=== PATIENT | female | born 1990 | race Caucasian/White ===

== ENCOUNTER → 2020-08-14 10:30 | Outpatient (BNVA) | payer OTHER, SELFPAY | PROVIDERS: Family Provider General Practice; Visit Provider Nurse Practitioner Family | DX: Z20.828 Contact with and (suspected) exposure to other viral communicable diseases (principal) | CPT/HCPCS: 87635 ==

== ENCOUNTER 2022-01-04 15:25 | Emergency (ER) | payer OTHER, SELFPAY ==
[2022-01-04 15:41] VITALS: BP 130/85; PULSE 105; RESP 18; TEMP 37.3; O2SAT 97; BMI 21.9
--- NOTE | 2022-01-04 15:52 | ED_ITS ---
HPI - General Adult General: Chief complaint: Needlestick/Injury/Exposure Stated complaint: Needle stick at work Time Seen by Provider: 01/04/22 15:51 History of Present Illness: Patient is a 31-year-old female comes to the ED with accidental needlestick injury. 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 The trash bag hit patient's left leg and something poked her leg. Trash bag had multiple insulin needles in it. Patient says she does have a history of past hep C infection but no current hepatitis C infection. Associated symptoms: Deny chest pain, dyspnea, headache(s), nausea, rash, palpitations or vomiting Review of Systems Const: Denies: fever(s), chills or fatigue Eyes: Denies: change in vision or eye discomfort ENMT: Denies: throat pain, odynophagia, nasal discharge or nasal congestion Card: Denies: chest pain, palpitations, edema, swelling of feet/ankles, dyspnea on exertion or orthopnea Resp: Denies: dyspnea, productive cough or non-productive cough GI: Denies: abdominal pain, nausea, vomiting, diarrhea, constipation or hematochezia : Denies: flank pain, dysuria or hematuria Musc: Denies: neck pain, back pain or extremity swelling Skin/Breast: Reports: new lesions (Puncture wound to left leg.); Denies: rash Neuro: Denies: headache(s), numbness in extremities or weakness in extremities [facility] ED PFSH: Medical History (Updated 01/05/22 @ 07:35 by RODRIGO Vizcarra) Hepatitis C Surgical History H/O tubal ligation Family History Grandmother Hypertension Diabetes Mother Hypertension Sister Diabetes Denies family history of Dementia Social History Smoking and tobacco status: current every day smoker cigarettes Packs smoked per day: 0.5 Years cigarettes smoked: 1 Alcohol intake: never Current gender identity: Female Special lyubov needs: No Female Reproductive History: Date of last menstrual period: 12/24/21 Physical Exam Const: COMMON NORMALS: no acute distress, patient oriented x3, healthy ap pearing and alert GENERAL APPEARANCE: cooperative and comfortable HENMT: COMMON NORMALS: normocephalic HEAD & SCALP: normocephalic MOUTH: Normal oral and palatal mucosa present THROAT: posterior oropharynx normal and uvula midline Neck/C-Spine: COMMON NORMALS: supple GENERAL: Yes normal visual inspection Resp: COMMON NORMALS: normal respiratory effort, No retractions, No use of accessory muscles and clear to auscultation bilaterally AUSCULTATION: clear to auscultation bilaterally Cardio: COMMON NORMALS: regular rate, regular rhythm, S1 normal heart sound present, S2 normal heart sound present, No gallops present (Cardio), No clicks present (Cardio), No murmurs present (Cardio) and Peripheral pulses 2+ throughout RATE: regular rate RHYTHM: regular rhythm HEART SOUNDS: S1 normal heart sound present and S2 normal heart sound present PERIPHERAL PULSES: Peripheral pulses 2+ throughout GI: COMMON NORMALS: Normal to inspection, nondistended, normoactive bowel sounds present, Soft to palpation, non-tender and no masses PALPATION: Yes Soft to palpation : COMMON NORMALS: Yes no CVA tenderness BLADDER/KIDNEY EXAM: Yes no CVA tenderness Back/Pelvis: COMMON NORMALS: no CVA tenderness Extremity: COMMON NORMALS: normal to inspection Neuro: COMMON NORMALS: patient oriented x3 and moves all extremities SENSORIUM/ORIENTATION: Yes alert Skin: NARRATIVE SKIN EXAM: Left leg?lateral lower leg-small superficial puncture wound. No erythema, warmth or purulent drainage seen. GENERAL SKIN EXAM: dry skin Course Vital Signs: Vital signs: Vital Signs Temperature 99.2 F 01/04/22 15:41 Pulse Rate 105 H 01/04/22 15:41 Respiratory Rate 18 01/04/22 15:41 Blood Pressure 130/85 01/04/22 15:41 Pulse Oximetry 97 01/04/22 15:41 MDM - General Adult Medical Decision Making Patient is 31-year-old female comes to the ED for having an accidental needlestick injury at her work. CBC, CMP, HIV and hepatitis labs performed and pending. Patient did not want to wait for labs so she was discharged home after labs. I told her to call [facility] in a couple hours to get results. Patient was given updated tetanus while here in the ED and discharged home with a prophylactic antibiotic prescription due to dirty needlestick. She was told to follow-up with her PCP and will need to have repeat CBC, CMP, HIV and hepatitis panel labs done in the next 2 months. Patient understood and agree with plan. I gave patient a call the next day- morning ([phone]) of January 05 to see if she checked on her hepatitis panel labs. She had a positive hep B antibodies likely consistent with immunity anterior hip otitis B surface antigen was nonreactive. Positive hepatitis C antibody. I told her about the lab findings and discussed with her that further labs are needed to check if she has any current/active infection. She does not currently have a primary care physician, so I told her I would place an order with case management for her to be referred to Dr. Mccarthy for further evaluation of abnormal hepatitis panel lab findings. Patient understood and agreed with plan. Lab Data I reviewed the patient's lab results. : 01/04/22 17:30 01/04/22 17:30 Laboratory Results WBC 9.9 10^3/uL (4.0-10.0) 01/04/22 17: RBC 4.16 10^6/uL (4.1-5.3) 01/04/22 17:30 Hgb 12.8 g/dL (11.5-15.3) 01/04/22 17:30 Hct 39.3 % (37.0-47.0) 01/04/22 17: MCV 94.5 fl (81-99) 01/04/22 17:30 MCH 30.8 pg (28.0-34.0) 01/04/22 17: MCHC 32.6 g/dL (30.0-36.0) 01/04/22 17: RDW 13.2 % (12.1-15.1) 01/04/22 17:30 Plt Count 322 10^3/cmm (130-400) 01/04/22 17: MPV 10.1 fL (7.4-10.4) 01/04/22 17: Neut % (Auto) 55.8 % 01/04/22 17:30 Lymph % (Auto) 37.1 % 01/04/22 17: [place] % (Auto) 4.8 % 01/04/22 17: Eos % (Auto) 1.6 % 01/04/22 17: Baso % (Auto) 0.4 % 01/04/22 17:30 Neut # (Auto) 5.50 10^3/uL (1.8-7.7) 01/04/22 17: Lymph # (Auto) 3.7 10^3/uL (0.8-4.8) 01/04/22 17:30 [place] # (Auto) 0.5 10^3/uL (0.2-0.9) 01/04/22 17: Eos # (Auto) 0.2 10^3/uL (0.0-0.8) 01/04/22 17: Baso # (Auto) 0.0 10^3/uL (0.0-0.1) 01/04/22: Nucleated RBC % (auto) 0 % 01/04/22: Nucleated RBCs # 0.0 /100WBC 01/04/22:30 Sodium 138 mmol/L (136-145) 01/04/22: Potassium 4.4 mmol/L (3.5-5.1) 01/04/22: Chloride 105 mmol/L (98-107) 01/04/22: Carbon Dioxide 23 mmol/L (22-29) 01/04/22 17:30 Anion Gap 14.4 (5-19) 01/04/22:30 BUN 10 mg/dL (6-20) 01/04/22 17: Creatinine 0.5 mg/dL (0.5-0.9) 01/04/22 17:30 GFR Calculation 143.9 mL/min (90-130) H 01/04/22 17: Glucose 93 mg/dL (65-115) 01/04/22 17: Calculated Osmolality 285 mOsm/kg (285-295) 01/04/22 17:30 Calcium 9.0 mg/dL (8.5-10.5) 01/04/22:30 Total Bilirubin 0.2 mg/dL (0.15-1.2) 01/04/22 17:30 AST 93 U/L (0-32) H 01/04/22 17:30 ALT 195 U/L (0-33) H 01/04/22 17:30 Alkaline Phosphatase 56 IU/L (35-105) 01/04/22 17:30 Total Protein 7.0 g/dL (6.6-8.7) 01/04/22 17:30 Albumin 4.2 g/dL (3.5-5.2) 01/04/22 17:30 Globulin 2.8 g/dL (1.3-4.6) 01/04/22 17:30 Hepatitis A IgM Ab TNP 01/04/22 17:30 Hep Bs Antigen Non-reactive (Nonreactive) 01/04/22 17:30 Hep Bs Antibody > 1000.0 (11.5-1000) H 01/04/22 17:30 Hep B Core Total Ab Non-reactive (Nonreactive) 01/04/22 17:30 Hepatitis C Antibody Reactive (Nonreactive) H 01/04/22 17:30 HIV 1&2 Ab & HIV 1 Ag Non-reactive (Non-Reactiv) 01/04/22 17:30 HIV 1&2 Antibody Non-reactive (Non-Reactiv) 01/04/22 17:30 Discharge Plan Discharge Patient Disposition: Home Clinical Impression: Needlestick injury accident with exposure to body fluid, Hepatitis C antibody test positive Condition: Stable Prescriptions: New cephalexin 500 mg capsule 500 mg PO Q6H 4 Days Qty: 16 0RF No Action amoxicillin-pot clavulanate [Augmentin] 875-125 mg tablet 1 tab PO BID 7 Days Qty: 14 0RF Discharge Orders: Discharge ED (Routine); Ordered 01/04/22 Ordered By: Tony Morrow Discharge Diet: Regular Discharge Activity: Increase activity as tolerated Patient Instructions: Blood/Body Fluid Exposure - Occupational, Needle Stick Injuries (ED) Activity Restrictions/Additional Instructions: Follow-up with medical provider as directed In the next 2 months to have CBC, CMP, HIV and hepatitis panel labs rechecked. Your labs are pending and you can call [facility] in the next couple hours to get results. Take medication as prescribed. Return to the ER or your medical provider if condition worsens. Please read and understand discharge instructions. Thank you for choosing [facility] for your healthcare needs today. Please realize this is an emergency room and that we are providing you with a medical screening exam and this may not be complete and all inclusive of all the testing and or work up that you may need to determine your ailment or severity of your illness. It is very important that you follow up as instructed or that you return to the Emergency Department should you have concerns or if your condition changes or worsens in any way. Coding Level of Care Code ED Chief Deputy Court Clerk for Brunilda Fwjacki Exam Comprehensive
[2022-01-04] MEDS: tetanus-dipt-pertussis 0.5 mL SDV IM (16:23)
[2022-01-04 17:38] LABS: Basophils % 0.4 %; Eosinophils # 0.2 10^3/uL (0.0-0.8); Eosinophils % 1.6 %; Hematocrit 39.3 % (37.0-47.0); Hemoglobin 12.8 g/dL (11.5-15.3); Lymphocytes # 3.7 10^3/uL (0.8-4.8); Lymphocytes % 37.1 %; Mean Corpuscular HGB Conc 32.6 g/dL (30.0-36.0); Mean Corpuscular Hemoglobin 30.8 pg (28.0-34.0); Mean Corpuscular Volume 94.5 fl (81-99); Mean Platelet Volume 10.1 fL (7.4-10.4); Monocytes # 0.5 10^3/uL (0.2-0.9); Monocytes % 4.8 %; Neutrophils % 55.8 %; Nucleated Red Blood Cells % 0 %; Platelet Count 322 10^3/cmm (130-400); Red Blood Count 4.16 10^6/uL (4.1-5.3); Red Cell Distribution Width 13.2 % (12.1-15.1); White Blood Count 9.9 10^3/uL (4.0-10.0)
[2022-01-04 17:53] LABS: Alanine Aminotransferase 195 U/L (0-33); Albumin Level 4.2 g/dL (3.5-5.2); Alkaline Phosphatase 56 IU/L (35-105); Anion Gap 14.4 (5-19); Aspartate Amino Transferase 93 U/L (0-32); Blood Urea Nitrogen 10 mg/dL (6-20); Carbon Dioxide 23 mmol/L (22-29); Chloride 105 mmol/L (98-107); Globulin 2.8 g/dL (1.3-4.6); Glomerular Filtration Rate 143.9 mL/min (90-130); Glucose 93 mg/dL (65-115); Osmolality Calculated 285 mOsm/kg (285-295); Potassium 4.4 mmol/L (3.5-5.1); Sodium 138 mmol/L (136-145); Total Bilirubin 0.2 mg/dL (0.15-1.2)
[2022-01-04 21:04] LABS: HIV 1 & 2 Antibody Non-Reactive (Non-Reactiv); HIV 1 & 2 Antigen Non-Reactive (Non-Reactiv)
[2022-01-04 22:24] LABS: Hepatitis B Core AB, Total Non-Reactive (Nonreactive); Hepatitis B Surface Antigen Non-Reactive (Nonreactive); Hepatitis C Virus Antibody Reactive (Nonreactive)
[2022-01-04 22:29] LABS: Hepatitis B Surface AB > 1000.0 (11.5-1000)
--- NOTE | 2022-01-05 12:32 | DCPLANNER ---
Addendum entered by Isela Segovia 02/02/22 21:35: Patient had a follow up appointment scheduled with Dr. Mccarthy at Internal Medicine - patient did not attend appointment. Addendum entered by Isela Segovia 01/06/22 07:53: Patient has a follow up appointment scheduled for Wednesday, January 26, 2022 at 1:30 with at Internal Medicine. Clinic will call patient with appointment information. Original Note: assistant portfolio manager had message to schedule a follow up appointment for patient with Dr. Mccarthy at Internal Medicine. assistant portfolio manager sent patients information to internal medicine for review. Patients information will be printed and reviewed. Clinic will call patient wit appointment information.
[2022-01-06 23:48] LABS: HEP C RNA Viral Load Quant 176000 IU/mL (NOT DETECTED); HEP C RNA Viral Load Quant 5.25 Log IU/mL (NOT DETECTED)
== END 2022-01-04 17:36 | disposition home or self-care (01) ==
PROVIDERS: Emergency Provider Physician Assistant
DX: S81.832A Puncture wound without foreign body, left lower leg, initial encounter (principal); W46.1XXA Contact with contaminated hypodermic needle, initial encounter
CPT/HCPCS: 36415; 80053; 85025; 86705; 86706; 86709; 86803; 87340; 87522; 87806; 90471; 90715; 99283

== ENCOUNTER 2022-02-17 10:38 | Outpatient (CLI) | payer OTHER, SELFPAY ==
[2022-02-17 12:03] LABS: Basophils % 0.2 %; Eosinophils # 0.1 10^3/uL (0.0-0.8); Eosinophils % 1.3 %; Hematocrit 42.8 % (37.0-47.0); Hemoglobin 13.9 g/dL (11.5-15.3); Lymphocytes # 3.3 10^3/uL (0.8-4.8); Lymphocytes % 32.3 %; Mean Corpuscular HGB Conc 32.5 g/dL (30.0-36.0); Mean Corpuscular Hemoglobin 29.8 pg (28.0-34.0); Mean Corpuscular Volume 91.8 fl (81-99); Mean Platelet Volume 10.5 fL (7.4-10.4); Monocytes # 0.6 10^3/uL (0.2-0.9); Monocytes % 6.3 %; Neutrophils # 6.04 10^3/uL (1.8-7.7); Neutrophils % 59.6 %; Nucleated Red Blood Cells % 0 %; Platelet Count 326 10^3/cmm (130-400); Red Blood Count 4.66 10^6/uL (4.1-5.3); Red Cell Distribution Width 14.5 % (12.1-15.1); White Blood Count 10.1 10^3/uL (4.0-10.0)
[2022-02-17 12:06] LABS: Erythrocyte Sedimentation Rate 14 mm/hr (0-15)
[2022-02-17 12:25] LABS: Alanine Aminotransferase 246 U/L (0-33); Albumin Level 4.4 g/dL (3.5-5.2); Alkaline Phosphatase 62 IU/L (35-105); Anion Gap 13.7 (5-19); Aspartate Amino Transferase 70 U/L (0-32); Blood Urea Nitrogen 10 mg/dL (6-20); Calcium 8.6 mg/dL (8.5-10.5); Carbon Dioxide 22 mmol/L (22-29); Chloride 101 mmol/L (98-107); Globulin 3.1 g/dL (1.3-4.6); Glomerular Filtration Rate 143.9 mL/min (90-130); Glucose 89 mg/dL (65-115); Osmolality Calculated 275 mOsm/kg (285-295); Potassium 3.7 mmol/L (3.5-5.1); Sodium 133 mmol/L (136-145); Total Bilirubin 0.4 mg/dL (0.15-1.2); Total Protein 7.5 g/dL (6.6-8.7)
== END 2022-02-17 10:39 | disposition home or self-care (01) ==
PROVIDERS: Visit Provider Nurse Practitioner Family
DX: L50.9 Urticaria, unspecified (principal)
CPT/HCPCS: 36415; 80053; 85025; 85651; 86003

== ENCOUNTER → 2023-01-19 10:38 | Outpatient (BNVA) | payer MEDICAID, SELFPAY | PROVIDERS: Visit Provider Nurse Practitioner Family | DX: R09.81 Nasal congestion (principal); Z20.822 Contact with and (suspected) exposure to COVID-19 | CPT/HCPCS: 87426 ==

== ENCOUNTER 2023-01-21 20:06 | Emergency (ER) | payer BC, MEDICAID, SELFPAY ==
[2023-01-21 20:09] VITALS: BP 136/65; PULSE 107; RESP 17; TEMP 36.7; O2SAT 100
--- NOTE | 2023-01-21 21:18 | CTR_ITS ---
PROCEDURE INFORMATION: Exam: CT Neck With Contrast Exam date and time: 01/21/2023 9:58 PM Age: 32 years old Clinical indication: Neck pain; Prior surgery; Surgery type: Tonsils/adenoids; Additional info: L submandibular mass and pain TECHNIQUE: Imaging protocol: Computed tomography of the neck with contrast. Sagittal and coronal reformatted images were created and reviewed. Radiation optimization: All CT scans at this facility use at least one of these dose optimization techniques: automated exposure control; mA and/or kV adjustment per patient size (includes targeted exams where dose is matched to clinical indication); or iterative reconstruction. Contrast material: OMNI 350; Contrast volume: 80 ml; Contrast route: INTRAVENOUS (IV); REPORTING DATA: Count of CT and Cardiac NM exams in prior 12 months: This patient has received 0 known CTs and 0 known cardiac nuclear medicine studies in the 12 months prior to the current study. COMPARISON: No relevant prior studies available. RADIATION DOSE METRICS: Total DLP (mGy-cm): 188.37 FINDINGS: Orbital cavities: Globes and lenses, extraocular muscles, and optic nerves are intact bilaterally. No acute intraorbital abnormality. Mastoid air cells: Mastoid air cells are clear bilaterally. Paranasal sinuses: Small mucous retention cyst in a left ethmoid sinus. Other paranasal sinuses are clear. Pharynx: Unremarkable. No significant tonsillar enlargement. Larynx: The larynx is unremarkable. The epiglottis is unremarkable. Prevertebral and retropharyngeal spaces: Unremarkable. Salivary glands: Normal. Glands are normal in size. Thyroid: The thyroid gland is unremarkable. Lymph nodes: No lymphadenopathy. Trachea: Trachea is midline and patent. Lungs: Visualized lungs are clear. Bones/joints: No acute fracture. No dislocation. Vasculature: The cervical vessels are unremarkable. Soft tissues: No soft tissue swelling. No radiopaque foreign body. No loculated fluid collections to suggest an abscess. CT/CT neck w con* [id number] IMPRESSION: 1. No acute abnormality of the cervical soft tissues. 2. Incidental/nonacute findings are listed in the report.
[2023-01-21 21:51] LABS: Basophils % 0.4 %; Eosinophils # 0.2 10^3/uL (0.0-0.8); Eosinophils % 1.8 %; Hematocrit 36.5 % (37.0-47.0); Hemoglobin 11.8 g/dL (11.5-15.3); Lymphocytes # 3.7 10^3/uL (0.8-4.8); Lymphocytes % 37.9 %; Mean Corpuscular HGB Conc 32.3 g/dL (30.0-36.0); Mean Corpuscular Hemoglobin 30.4 pg (28.0-34.0); Mean Corpuscular Volume 94.1 fl (81-99); Monocytes # 0.9 10^3/uL (0.2-0.9); Monocytes % 8.9 %; Neutrophils # 4.89 10^3/uL (1.8-7.7); Neutrophils % 50.7 %; Nucleated Red Blood Cells % 0 %; Platelet Count 326 10^3/cmm (130-400); Red Blood Count 3.88 10^6/uL (4.1-5.3); Red Cell Distribution Width 14.3 % (12.1-15.1); White Blood Count 9.6 10^3/uL (4.0-10.0)
[2023-01-21] MEDS: iohexol 350 mg/mL 500 mL Btl (per mL) IV (21:52)
--- NOTE | 2023-01-21 22:00 | ED_ITS ---
HPI - Dental/Oral General: Chief complaint: Dental/Oral Stated complaint: swelling cyst under tongue Time Seen by Provider: 01/21/23 20:56 Source: patient and family History of Present Illness: Healthy 32-year-old female with a 3-week history of submandibular swelling and pain. She notes that there is a mass under her tongue, and swelling under her jaw on the left side that is very painful. She has had 3 weeks of antibiotic therapy including Augmentin, clindamycin, and doxycycline without any improvement. No rashes. No airway compromise. It is painful to talk and move her tongue. It is also painful to swallow. Onset (ago): week(s) Duration: worsening Severity: moderate Relieving factors: nothing Exacerbating factors: chewing, drinking fluids, swallowing and other Associated symptoms: Reports fever(s), odynophagia and sore throat; Denies ear or mastoid pain, gum swelling or tongue swelling Review of Systems Const: Reports: fever(s) Eyes: Denies: change in vision ENMT: Reports: throat pain, odynophagia and mouth pain; Denies: uvular edema, enlarged tonsils, swelling of lips/tongue, ear or mastoid pain, nasal discharge or nasal congestion Card: Denies: chest pain or palpitations Resp: Denies: dyspnea, productive cough or non-productive cough GI: Denies: abdominal pain or vomiting Skin/Breast: Denies: rash All/Imm: Denies: tongue swelling PFSH ED PFSH: Medical History Hepatitis C Psychiatric care Surgical History H/O tubal ligation Family History Grandmother Hypertension Diabetes Mother Hypertension Sister Diabetes Denies family history of Dementia Social History Smoking and tobacco status: current every day smoker cigarettes Packs smoked per day: 0.5 Years cigarettes smoked: 1 Alcohol intake: never Substance/Drug Use: never Current gender identity: Female Special lyubov needs: No Physical Exam Const: COMMON NORMALS: no acute distress GENERAL APPEARANCE: cooperative; not ill appearing and not frail appearing HENMT: COMMON NORMALS: normocephalic, atraumatic and Normal external nose present HEAD & SCALP: normocephalic and atraumatic FACE & SINUS: normal facial exam and face symmetric NOSE: Normal external nose present MOUTH: lip normal and Abnormal salivary glands and ducts (Left submandibular swelling and tenderness.) THROAT: no uvular edema Eye: COMMON NORMALS: Equal, round and reactive pupils present and EOMs intact bilaterally PUPIL: Yes Equal, round and reactive pupils present Neck/C-Spine: GENERAL: Yes trachea midline Chest: CHEST: Yes Symmetrical chest wall rise Resp: COMMON NORMALS: normal respiratory effort, No retractions, No use of accessory muscles and clear to auscultation bilaterally AUSCULTATION: clear to auscultation bilaterally Cardio: COMMON NORMALS: regular rate and regular rhythm RATE: regular rate RHYTHM: regular rhythm GI: COMMON NORMALS: Normal to inspection, nondistended, normoactive bowel sounds present Extremity: COMMON NORMALS: no pedal edema Neuro: CRICKET COMA SCALE: document GCS findings Weikert coma scale eye opening: Spontaneous Weikert coma scale verbal response: Orientated Weikert coma scale motor response: Obey commands Cricket coma scale total score: 15 SENSORY EXAM: Yes extremities (intact) Psych: COMMON NORMALS: speech normal SPEECH: Yes normal speech Skin: COMMON NORMALS: no rashes or lesions noted GENERAL SKIN EXAM: no rashes or lesions noted Course Vital Signs: Vital signs: Vital Signs Temperature 98.1 F 01/21/23 20:09 Pulse Rate 107 H 01/21/23 20:09 Respiratory Rate 17 01/21/23 20:09 Blood Pressure 136/65 01/21/23 20:09 Pulse Oximetry 100 01/21/23 20:09 Oxygen Delivery Me thod Room Air 01/21/23 20:09 MDM - Dental/Oral Medical Decision Making Patient with enlarged swollen tender submandibular gland on the left on exam. No leukocytosis or fever. She has had 3 different antibiotics. Other laboratory is not significant. She has a CT showing some mild swelling of the gland, although it is read as negative. There is no abscess formation or mass. She will be treated with steroids and asked to follow-up with ENT surgery. She knows to return for worsening symptoms. She is encouraged to make use of lemon drops, etc. as a sialagogue hopefully to improve symptoms as well. Lab Data 01/21/23 21:42 01/21/23 21:[address] 01/21/23 21:18 IMPRESSION: 1. No acute abnormality of the cervical soft tissues. 2. Incidental/nonacute findings are listed in the report. Laboratory Results WBC 9.6 10^3/uL (4.0-10.0) 01/21/23 21:42 RBC 3.88 10^6/uL (4.1-5.3) L 01/21/23 21:42 Hgb 11.8 g/dL (11.5-15.3) 01/21/23 21:42 Hct 36.5 % (37.0-47.0) L 01/21/23 21:42 MCV 94.1 fl (81-99) 01/21/23 21:42 MCH 30.4 pg (28.0-34.0) 01/21/23 21:42 MCHC 32.3 g/dL (30.0-36.0) 01/21/23 21:42 RDW 14.3 % (12.1-15.1) 01/21/23 21:42 Plt Count 326 10^3/cmm (130-400) 01/21/23 21:42 MPV 10.0 fL (7.4-10.4) 01/21/23 21:42 Neut % (Auto) 50.7 % 01/21/23 21:42 Lymph % (Auto) 37.9 % 01/21/23 21:42 [place] % (Auto) 8.9 % 01/21/23 21:42 Eos % (Auto) 1.8 % 01/21/23 21:42 Baso % (Auto) 0.4 % 01/21/23 21:42 Neut # (Auto) 4.89 10^3/uL (1.8-7.7) 01/21/23 21:42 Lymph # (Auto) 3.7 10^3/uL (0.8-4.8) 01/21/23 21:42 [place] # (Auto) 0.9 10^3/uL (0.2-0.9) 01/21/23 21:42 Eos # (Auto) 0.2 10^3/uL (0.0-0.8) 01/21/23 21:42 Baso # (Auto) 0.0 10^3/uL (0.0-0.1) 01/21/23 21:42 Nucleated RBC % (auto) 0 % 01/21/23 21:42 Nucleated RBCs # 0.0 /100WBC 01/21/23 21:42 ESR 5 mm/hr (0-15) 01/21/23 21:42 Sodium 127 mmol/L (136-145) L 01/21/23 21:42 Potassium 3.5 mmol/L (3.5-5.1) 01/21/23 21:42 Chloride 98 mmol/L (98-107) 01/21/23 21:42 Carbon Dioxide 24 mmol/L (22-29) 01/21/23 21:42 Anion Gap 8.5 (5-19) 01/21/23 21:42 BUN 15 mg/dL (6-20) 01/21/23 21:42 Creatinine 0.6 mg/dL (0.5-0.9) 01/21/23 21:42 GFR Calculation 115.9 mL/min (90-130) 01/21/23 21:42 Glucose 92 mg/dL (65-115) 01/21/23 21:42 Calculated Osmolality 264 mOsm/kg (285-295) L 01/21/23 21:42 Calcium 8.6 mg/dL (8.5-10.5) 01/21/23 21:42 Total Bilirubin 0.2 mg/dL (0.15-1.2) 01/21/23 21:42 AST 117 U/L (0-32) H 01/21/23 21:42 ALT 309 U/L (0-33) H 01/21/23 21:42 Alkaline Phosphatase 65 U/L (35-105) 01/21/23 21:42 C-Reactive Protein 3.0 mg/L (0.0-4.9) 01/21/23 21:42 Total Protein 7.4 g/dL (6.6-8.7) 01/21/23 21:42 Albumin 4.1 g/dL (3.5-5.2) 01/21/23 21:42 Globulin 3.3 g/dL (1.3-4.6) 01/21/23 21:42 Discharge Plan Discharge Patient Disposition: Home Clinical Impression: Sialoadenitis Condition: Stable Prescriptions: New hydrocodone-acetaminophen 5-325 mg tablet 1 tab PO Q8H PRN (Reason: pain) Qty: 7 0RF Medrol (Ronan) 4 mg tablets,dose pack See Rx Instructions .ROUTE .COMPLEX Qty: 21 0RF Rx Instructions: orally per package directions No Action clindamycin HCl 300 mg capsule 300 mg PO QID 7 Days Qty: 28 0RF Discharge Orders: Discharge ED (Routine); Ordered 01/21/23 Ordered By: Yunior Mccabe Referrals: Caesar Santamaria MD [Physician] - 1-3 days Patient Instructions: Sialoadenitis (ED), Opioid Safety, Pain Management Activity Restrictions/Additional Instructions: Return for worsening pain despite treatment, worsening swelling despite treatment, other concerning symptoms. Case management will make an appointment for you for follow-up with ear nose and throat surgery. You should hear from them at the beginning of the week. You may also call on your own on Monday. Coding Level of Care Code ED Dental Service Technician for Brunilda Bran
[2023-01-21 22:03] LABS: Erythrocyte Sedimentation Rate 5 mm/hr (0-15)
[2023-01-21 22:07] LABS: Alanine Aminotransferase 309 U/L (0-33); Albumin Level 4.1 g/dL (3.5-5.2); Alkaline Phosphatase 65 U/L (35-105); Anion Gap 8.5 (5-19); Aspartate Amino Transferase 117 U/L (0-32); Blood Urea Nitrogen 15 mg/dL (6-20); Calcium 8.6 mg/dL (8.5-10.5); Carbon Dioxide 24 mmol/L (22-29); Chloride 98 mmol/L (98-107); Globulin 3.3 g/dL (1.3-4.6); Glomerular Filtration Rate 115.9 mL/min (90-130); Glucose 92 mg/dL (65-115); Osmolality Calculated 264 mOsm/kg (285-295); Potassium 3.5 mmol/L (3.5-5.1); Sodium 127 mmol/L (136-145); Total Bilirubin 0.2 mg/dL (0.15-1.2); Total Protein 7.4 g/dL (6.6-8.7)
[2023-01-21] MEDS: ketorolac 30 mg/mL INJ 15 MG IVP (23:06)
[2023-01-21] MEDS: ondansetron 2 mg/ML SDV 2 mL 4 MG IVP (23:10)
[2023-01-21] MEDS: oxyCODONE-APAP 5-325 mg Tablet 2 TAB PO (23:37)
--- NOTE | 2023-01-23 11:49 | DCPLANNER ---
Addendum entered by Isela Segovia 02/14/23 14:40: Patient had a follow up appointment scheduled with ENT - patient did attend appointment. Addendum entered by Isela Segovia 01/26/23 09:33: Patient has a follow up appointment scheduled for Tuesday, February 07, 2023 at 1:[address] Santamaria at ENT. Original Note: livestock nutrition territory manager had message to schedule a follow up appointment for patient with ENT. livestock nutrition territory manager sent patients information to the front office staff at ENT. Patients information will be printed and reviewed. Clinic will call patient with appointment information.
--- NOTE | 2023-01-27 10:42 | DCPLANNER ---
manager strategic sourcing called patient due to no primary care physician - no answer at this time.
== END 2023-01-22 00:12 | disposition home or self-care (01) ==
PROVIDERS: Emergency Provider Emergency Medicine
DX: K11.20 Sialoadenitis, unspecified (principal); Z86.19 Personal history of other infectious and parasitic diseases; F17.210 Nicotine dependence, cigarettes, uncomplicated
CPT/HCPCS: 70491; 80053; 85025; 85651; 86140; 96374; 96375; 99285; J1885; J2405; J2930; Q9967

== ENCOUNTER → 2023-02-08 10:16 | Outpatient (BNVA) | payer BC, MEDICAID, SELFPAY | PROVIDERS: Visit Provider Psychiatry & Neurology Psychiatry | DX: F11.20 Opioid dependence, uncomplicated (principal); Z79.899 Other long term (current) drug therapy | CPT/HCPCS: 80307 ==

== ENCOUNTER 2023-02-25 18:57 | Emergency (ER) | payer BC, MEDICAID, SELFPAY ==
[2023-02-25 19:12] VITALS: BP 126/83; PULSE 102; RESP 18; TEMP 36.8; O2SAT 99; BMI 24.2
--- NOTE | 2023-02-25 19:41 | CTR_ITS ---
PROCEDURE INFORMATION: Exam: CT Neck With Contrast Exam date and time: 02/25/2023 8:01 PM Age: 32 years old Clinical indication: Other: Abscess unspec and submandibular tenderness left; Additional info: Abscess and submandi tenderness TECHNIQUE: Imaging protocol: Computed tomography of the neck with contrast. Radiation optimization: All CT scans at this facility use at least one of these dose optimization techniques: automated exposure control; mA and/or kV adjustment per patient size (includes targeted exams where dose is matched to clinical indication); or iterative reconstruction. Contrast material: OMNI 350; Contrast volume: 80 ml; Contrast route: INTRAVENOUS (IV); REPORTING DATA: Count of CT and Cardiac NM exams in prior 12 months: This patient has received [address] and 0 known cardiac nuclear medicine studies in the 12 months prior to the current study. COMPARISON: CT neck w con* [id number] 01/21/2023 9:58 PM RADIATION DOSE METRICS: Total DLP (mGy-cm): 244.11 FINDINGS: Pharynx: Unremarkable. No significant tonsillar enlargement. Larynx: Unremarkable. Epiglottis is normal. Prevertebral and retropharyngeal spaces: Unremarkable. Salivary glands: Unremarkable. Symmetrical bilaterally. Thyroid: Normal. No enlarged or calcified nodules. Lymph nodes: Unremarkable. No lymphadenopathy. Trachea: Visualized trachea is unremarkable. Lungs: Unremarkable as visualized. Bones/joints: No acute findings. Dental fillings noted. Soft tissues: An oval-shaped hypodense fluid density focus with peripheral enhancing margin is seen at the medial and posterior aspect of the left mandible toward the lower aspect of the mandible. On axial exam, medially this measures 1.5 x 0.8 cm and 2 x 1.4 cm more posteriorly to the left mandible. A tiny focus of air density is seen in close association. On sagittal exam, this measures [address]/CT neck w con* [id number] IMPRESSION: 1. Findings consistent with soft tissue abscess medial and posterior to the lower left mandible of approximally 2 x 1.5 x 1.4 cm in overall size. 2. No acute findings, otherwise.
[2023-02-25 20:08] LABS: Basophils # 0.1 10^3/uL (0.0-0.1); Basophils % 0.6 %; Eosinophils # 0.2 10^3/uL (0.0-0.8); Hemoglobin 13.1 g/dL (11.5-15.3); Lymphocytes # 3.3 10^3/uL (0.8-4.8); Lymphocytes % 30.1 %; Mean Corpuscular Hemoglobin 30.6 pg (28.0-34.0); Mean Corpuscular Volume 95.8 fl (81-99); Monocytes # 0.8 10^3/uL (0.2-0.9); Monocytes % 7.1 %; Neutrophils # 6.48 10^3/uL (1.8-7.7); Neutrophils % 59.8 %; Nucleated Red Blood Cells % 0 %; Platelet Count 331 10^3/cmm (130-400); Red Blood Count 4.28 10^6/uL (4.1-5.3); Red Cell Distribution Width 13.4 % (12.1-15.1); White Blood Count 10.8 10^3/uL (4.0-10.0)
[2023-02-25 20:29] LABS: Alanine Aminotransferase 237 U/L (0-33); Albumin Level 4.1 g/dL (3.5-5.2); Alkaline Phosphatase 68 U/L (35-105); Aspartate Amino Transferase 93 U/L (0-32); Blood Urea Nitrogen 10 mg/dL (6-20); Carbon Dioxide 21 mmol/L (22-29); Chloride 102 mmol/L (98-107); Globulin 3.8 g/dL (1.3-4.6); Glucose 98 mg/dL (65-115); Osmolality Calculated 279 mOsm/kg (285-295); Sodium 135 mmol/L (136-145); Total Bilirubin 0.2 mg/dL (0.15-1.2); Total Protein 7.9 g/dL (6.6-8.7)
[2023-02-25 20:30] LABS: Lactic Sepsis W/Reflex 1.1 mmol/L (0.5-2.2)
--- NOTE | 2023-02-25 21:12 | ED_ITS ---
HPI - Dental/Oral General: Chief complaint: Dental/Oral Stated complaint: facial swelling Time Seen by Provider: 02/25/23 19:18 History of Present Illness: Patient is a 32-year-old female that presents to the emergency department with a 6-week history of mandibular abscess. Patient reports that first noted the abscess mid December. Since that time she has undergone a CT of the neck and has been on 3 rounds of antibiotics without improvement in symptoms. Patient returns today with concerns of worsening pain. She denies difficulty swallowing or breathing. Medical history includes polysubstance abuse, PTSD, depression, psychiatric care, hepatitis C Associated symptoms: Denies ear or mastoid pain, fever(s) or odynophagia Review of Systems General: Reports: 10 or more systems reviewed and unremarkable except in HPI and below Const: Denies: fever(s), chills, change in appetite, change in weight, fatigue or malaise Eyes: Denies: change in vision, eye discomfort, eye discharge or eye redness ENMT: Reports: other (Tenderness in the floor the mouth, mandible abscess); Denies: throat pain, enlarged tonsils, odynophagia, hoarseness, ear or mastoid pain, ear discharge, change in hearing, tinnitus, nasal discharge, nasal congestion, post nasal drip or sinus pain Card: Denies: chest pain, palpitations, irregular heart rhythm, edema, dyspnea on exertion, orthopnea or leg pain with exertion Resp: Denies: dyspnea, productive cough, non-productive cough, wheezing, stridor or chest congestion GI: Denies: abdominal pain, nausea, vomiting, dysphagia, diarrhea, constipation, bloating, GI cramping or hematochezia : Denies: flank pain, difficulty voiding, dysuria, urinary frequency, urinary urgency, urinary hesitancy, oliguria or hematuria Musc: Denies: neck pain, back pain, extremity pain, joint pain, joint swelling, joint redness, joint warmth or muscle weakness Skin/Breast: Denies: rash, pruritus, erythema, photosensitivity or new lesions Neuro: Denies: headache(s), numbness in extremities, weakness in extremities, sensory changes, lack of coordination, difficulty walking, frequent falls, dizziness, confusion, Slurred speech present, difficulty communicating thoughts, seizure-like activity or involuntary movements Endo: Denies: polyuria, polydipsia or tired all the time Gunner/Lymph: Denies: easy bruising or easy bleeding PFSH ED PFSH: Medical History Bipolar II disorder Hepatitis C Post-traumatic stress disorder, chronic Psychiatric care Surgical History H/O tubal ligation Family History Grandmother Hypertension Diabetes Mother Hypertension Sister Diabetes Denies family history of Dementia Social History Smoking and tobacco status: current every day smoker cigarettes Packs smoked per day: 0.5 Years cigarettes smoked: 1 Alcohol intake: never Substance/Drug Use: never Current gender identity: Female Special lyubov needs: No Physical Exam Const: COMMON NORMALS: no acute distress, patient oriented x3 and alert GENERAL APPEARANCE: cooperative ORIENTATION/CONSCIOUSNESS: Yes awake, Yes oriented to person, Yes oriented to place and Yes oriented to time HENMT: COMMON NORMALS: normocephalic and atraumatic HEAD & SCALP: normocephalic and atraumatic FACE & SINUS: normal facial exam MOUTH: Normal oral and palatal mucosa present THROAT: abnormal tonsil bilateral erythema, exudates and hypertrophy and other (left lower jaw abscess. ); posterior oropharynx not normal and tonsils not normal Eye: COMMON NORMALS: Equal, round and reactive pupils present, EOMs intact bilaterally, conjunctivae normal and no scleral icterus GENERAL EYE: appearance normal, both eyes and all related structures ALIGNMENT: Yes alignment normal PERIORBITAL: periorbital findings normal CONJUNCTIVA: Yes conjunctivae normal PUPIL: Yes Equal, round and reactive pupils present Neck/C-Spine: COMMON NORMALS: full ROM GENERAL: Yes normal visual inspection Lymph: LYMPHATIC: no lymphadenopathy noted Chest: COMMONS NORMALS: normal inspection of the chest Breast/axilla inspection: Yes no chest deformity, asymmetry, normal contours, no nodules, masses, tenderness Resp: COMMON NORMALS: normal respiratory effort, No retractions, No use of accessory muscles and clear to auscultation bilaterally EFFORT & INSPECTION: Yes able to speak in complete sentences and Yes symmetric chest movement AUSCULTATION: clear to auscultation bilaterally Cardio: COMMON NORMALS: regular rate, regular rhythm and Peripheral pulses 2+ throughout RATE: regular rate RHYTHM: regular rhythm PERIPHERAL PULSES: Peripheral pulses 2+ throughout GI: COMMON NORMALS: Normal to inspection, nondistended, normoactive bowel sounds present, Soft to palpation, non-tender and No hepatosplenomegaly present INSPECTION: Yes normal to inspection AUSCULTATION: Yes normoactive bowel sounds PALPATION: Yes Soft to palpation and Yes No hepatosplenomegaly present RECTAL EXAM: deferred Extremity: COMMON NORMALS: normal to inspection GENERAL: Yes normal exam except as noted Neuro: COMMON NORMALS: patient oriented x3 SENSORIUM/ORIENTATION: Yes alert, Yes oriented to person, Yes oriented to place and Yes oriented to time CRANIAL NERVES: Yes CN normal except as noted Psych: COMMON NORMALS: mental status grossly normal, Normal thought process present, cooperative, activity/motor behavior normal, denies homicidal ideation and denies suicidal ideation THOUGHT PROCESS: Normal thought process present Skin: COMMON NORMALS: no rashes or lesions noted, no wounds and turgor normal GENERAL SKIN EXAM: no rashes or lesions noted and turgor normal Course Vital Signs: Vital signs: Vital Signs Temperature 98.2 F 02/25/23 19:12 Pulse Rate 75 02/25/23 21:16 Respiratory Rate 16 02/25/23 21:16 Blood Pressure 108/71 02/25/23 21:16 Pulse Oximetry 99 02/25/23 21:16 Oxygen Delivery Me thod Room Air 02/25/23 21:16 MDM - Dental/Oral Medical Decision Making Differential diagnosis includes: Dental abscess,submandibular abscess, parapharyngeal abscess Patient presents to the emergency department with concerns of an abscess. She has undergone work-up on numerous other occasions. She has been on 3 rounds of antibiotics for what is presumed to be a dental abscess. There is been no improvement in her symptoms but it does not appear that this is actually evolved. After obtaining a CT soft tissue neck with contrast today we compared it to previous exam. In discussion with my attending we have elected to contact ENT at [facility] for further recommendations. ENT was consulted and reviewed imaging. They deferred to oral [place]ofacial. [place] [facility] [place] the patient this week. She is to call at 0800 on Monday. In the meantime she is going home on Keflex and metronidazole every 6 hours. Patient has been updated. We will discharge her with ketorolac as well Questions answered Lab Data 02/25/23 19:55 02/25/23 19:[address] 02/25/23 19:41 IMPRESSION: 1. Findings consistent with soft tissue abscess medial and posterior to the lower left mandible of approximally 2 x 1.5 x 1.4 cm in overall size. 2. No acute findings, otherwise. Laboratory Results WBC 10.8 10^3/uL (4.0-10.0) H 02/25/23 19:55 RBC 4.28 10^6/uL (4.1-5.3) 02/25/23 19:55 Hgb 13.1 g/dL (11.5-15.3) 02/25/23 19:55 Hct 41.0 % (37.0-47.0) 02/25/23 19:55 MCV 95.8 fl (81-99) 02/25/23 19:55 MCH 30.6 pg (28.0-34.0) 02/25/23 19:55 MCHC 32.0 g/dL (30.0-36.0) 02/25/23 19:55 RDW 13.4 % (12.1-15.1) 02/25/23 19:55 Plt Count 331 10^3/cmm (130-400) 02/25/23 19:55 MPV 10.0 fL (7.4-10.4) 02/25/23 19:55 Neut % (Auto) 59.8 % 02/25/23 19:55 Lymph % (Auto) 30.1 % 02/25/23 19:55 [place]ot % (Auto) 7.1 % 02/25/23 19:55 Eos % (Auto) 2.0 % 02/25/23 19:55 Baso % (Auto) 0.6 % 02/25/23 19:55 Neut # (Auto) 6.48 10^3/uL (1.8-7.7) 02/25/23 19:55 Lymph # (Auto) 3.3 10^3/uL (0.8-4.8) 02/25/23 19:55 [place]ot # (Auto) 0.8 10^3/uL (0.2-0.9) 02/25/23 19:55 Eos # (Auto) 0.2 10^3/uL (0.0-0.8) 02/25/23 19:55 Baso # (Auto) 0.1 10^3/uL (0.0-0.1) 02/25/23 19:55 Nucleated RBC % (auto) 0 % 02/25/23 19:55 Nucleated RBCs # 0.0 /100WBC 02/25/23 19:55 Sodium 135 mmol/L (136-145) L 02/25/23 19:55 Potassium 4.0 mmol/L (3.5-5.1) 02/25/23 19:55 Chloride 102 mmol/L (98-107) 02/25/23 19:55 Carbon Dioxide 21 mmol/L (22-29) L 02/25/23 19:55 Anion Gap 16.0 (5-19) 02/25/23 19:55 BUN 10 mg/dL (6-20) 02/25/23 19:55 Creatinine 0.5 mg/dL (0.5-0.9) 02/25/23 19:55 GFR Calculation 143.0 mL/min (90-130) H 02/25/23 19:55 Glucose 98 mg/dL (65-115) 02/25/23 19:55 Calculated Osmolality 279 mOsm/kg (285-295) L 02/25/23 19:55 Lactic Acid 1.1 mmol/L (0.5-2.2) 02/25/23 19:55 Calcium 9.0 mg/dL (8.5-10.5) 02/25/23 19:55 Total Bilirubin 0.2 mg/dL (0.15-1.2) 02/25/23 19:55 AST 93 U/L (0-32) H 02/25/23 19:55 ALT 237 U/L (0-33) H 02/25/23 19:55 Alkaline Phosphatase 68 U/L (35-105) 02/25/23 19:55 Total Protein 7.9 g/dL (6.6-8.7) 02/25/23 19:55 Albumin 4.1 g/dL (3.5-5.2) 02/25/23 19:55 Globulin 3.8 g/dL (1.3-4.6) 02/25/23 19:55 Discharge Plan Discharge Patient Disposition: Home Clinical Impression: Dental abscess, Abscess Condition: Stable Prescriptions: New metronidazole 500 mg tablet 500 mg PO Q6H 7 Days Qty: 28 0RF cephalexin 500 mg capsule 500 mg PO Q6H 7 Days Qty: 28 0RF ketorolac 10 mg tablet 10 mg PO TID 5 Days Qty: 15 0RF No Action bupropion HCl [Wellbutrin XL] 150 mg tablet extended release 24 hr 150 mg PO QAM Qty: 30 1RF aripiprazole [Abilify] 5 mg tablet 5 mg PO DAILY Qty: 30 1RF trazodone 50 mg tablet 100 mg PO .HS PRN (Reason: insomnia) Qty: 60 1RF naltrexone 50 mg tablet 50 mg PO DAILY Qty: 30 1RF Discharge Orders: Discharge ED (Routine); Ordered 02/26/23 Ordered By: Tej Bryant Discharge Diet: Advance as tolerated Patient Instructions: Dental Abscess (ED), Pain Management Activity Restrictions/Additional Instructions: Follow-up with Dr. Canales at [facility] [place] on Monday. Call at 0800. The phone number is [phone] Take the antibiotics as prescribed-you will be taking Keflex 500 mg every 6 hours and Flagyl 500 mg every 6 hours You should never drink any alcohol while taking Flagyl. This will react st rongly and cause excessive vomiting. You develop any difficulty breathing or swallowing you are to return to the emergency department Coding Level of Care Code ED Production Team Member for Brunilda Bran
[2023-02-25 21:16] VITALS: BP 108/71; PULSE 75; RESP 16; O2SAT 99
[2023-02-25] MEDS: sodium chloride 0.9% 1,000 ML 999 ML IV (22:06)
[2023-02-25] MEDS: ketorolac 30 mg/mL INJ IVP (22:06)
[2023-02-26] MEDS: metroNIDAZOLE 500 MG Tablet PO (00:28)
[2023-02-26] MEDS: cephALEXin 500 mg Capsule PO (00:28)
--- NOTE | 2023-03-03 12:18 | DCPLANNER ---
auto body shop manager called patient due to no primary care physician - no answer at this time.
== END 2023-02-26 00:29 | disposition home or self-care (01) ==
PROVIDERS: Emergency Provider Nurse Practitioner
DX: K04.7 Periapical abscess without sinus (principal); Z86.19 Personal history of other infectious and parasitic diseases
CPT/HCPCS: 70491; 80053; 83605; 85025; 96361; 96374; 99285; J1885; J7030; Q9967

== ENCOUNTER 2023-06-06 16:22 | Emergency (ER) | payer BC, MEDICAID, SELFPAY ==
--- NOTE | 2023-06-06 16:23 | XRR_ITS ---
PROCEDURE INFORMATION: Exam: XR Left Wrist Exam date and time: 06/06/2023 4:36 PM Age: 32 years old Clinical indication: Injury or trauma; Fall; Blunt trauma (contusions or hematomas); Wrist; Left TECHNIQUE: Imaging protocol: Radiologic exam of the left wrist. Views: 3 or more views. COMPARISON: No relevant prior studies available. FINDINGS: Bones/joints: Normal. Soft tissues: Normal. XR/XR wrist LT min 3V* [id number] IMPRESSION: No acute findings.
[2023-06-06 16:27] VITALS: BP 126/85; PULSE 89; RESP 18; TEMP 37.2; O2SAT 97; BMI 24.2
--- NOTE | 2023-06-06 16:36 | XRR_ITS ---
PROCEDURE INFORMATION: Exam: XR Left Hand Exam date and time: 06/06/2023 4:41 PM Age: 32 years old Clinical indication: Injury or trauma; Fall; Blunt trauma (contusions or hematomas); Wrist and hand; Left; Additional info: Trauma/injury TECHNIQUE: Imaging protocol: Radiologic exam of the left hand. Views: 3 or more views. COMPARISON: CR XR wrist LT min 3V* [id number] 06/06/2023 4:36 PM FINDINGS: Bones/joints: Normal. Soft tissues: Normal. XR/XR hand LT min 3V* [id number] IMPRESSION: No acute findings.
--- NOTE | 2023-06-06 16:36 | W.ED.EXTPRO ---
HPI - Extremity Problem General: Chief complaint: Extremity Injury, Upper Stated complaint: left wrist injury Time Seen by Provider: 06/06/23 16:23 Source: patient Mode of arrival: ambulatory Limitations: no limitations History of Present Illness: Patient is a 32-year-old female presents to ED today for evaluation of a left wrist and hand injury that she sustained just prior to arrival after falling from a ladder and trying to catch herself with the hand. She is reporting pain to the ulnar aspect of the wrist and hand. She has no other injuries or complaints at this time. MD Complaint: extremity pain and joint pain Onset (ago): hour(s) Pain Consistency: constant Location: left and upper extremity Radiation: none Relieving factors: immobilization Exacerbating factors: range of motion Associated symptoms: Reports no associated symptoms Review of Systems Musc: Reports: extremity pain (L hand), extremity swelling (L hand) and joint pain (L wrist); Denies: joint swelling Neuro: Denies: numbness in extremities or sensory changes PFSH ED PFSH: Medical History Bipolar II disorder Hepatitis C Post-traumatic stress disorder, chronic Psychiatric care Surgical History H/O tubal ligation Family History Grandmother Hypertension Diabetes Mother Hypertension Sister Diabetes Denies family history of Dementia Social History Smoking and tobacco status: current every day smoker cigarettes Packs smoked per day: 0.5 Years cigarettes smoked: 1 Alcohol intake: never Substance/Drug Use: never Current gender identity: Female Special lyubov needs: No Physical Exam Const: COMMON NORMALS: no acute distress, average body habitus, no limitations, healthy appearing, alert and well nourished Extremity: COMMON NORMALS: capillary refill normal GENERAL: Yes normal exam except as noted LEFT UPPER EXTREMITY: Yes wrist (TTP distal ulnar w/o deformity or swelling) Left wrist: Yes neurovascular exam (normal) and Yes hand & digits (maximum tenderness overlying 5th metacarpal) Left hand and digits: Yes ROM (limited ROM secondary to pain), Yes neurovascular exam (normal) and Yes other (seems to have a small ganglion cyst to lateral aspect of left hand) Neuro: COMMON NORMALS: moves all extremities, no focal motor deficits and no sensory deficits noted SENSORIUM/ORIENTATION: Yes alert Course Vital Signs: Vital signs: Vital Signs Temperature 99.0 F 06/06/23 16:27 Pulse Rate 89 06/06/23 16:27 Respiratory Rate 18 06/06/23 16:27 Blood Pressure 126/85 06/06/23 16:27 Pulse Oximetry 97 06/06/23 16:27 Oxygen Delivery Me thod Room Air 06/06/23 16:27 MDM - Extremity (Nontraumatic) Medical Decision Making XRs negative. Will place in velcro wrist splint and discussed conservative therapies at home. Will have CM set her up with PCP for follow up in 1-2 weeks if symptoms do not seem to be improving. Lab Data Radiology Impressions Wrist X-Ray 06/06/23 16:23 IMPRESSION: No acute findings. Hand X-Ray 06/06/23 16:36 IMPRESSION: No acute findings. Discharge Plan Discharge Patient Disposition: Home Clinical Impression: Sprain and strain of left hand Condition: Stable Prescriptions: No Action aripiprazole [Abilify] 5 mg tablet 5 mg PO DAILY Qty: 30 1RF bupropion HCl [Wellbutrin XL] 150 mg tablet extended release 24 hr 150 mg PO QAM Qty: 30 1RF trazodone 50 mg tablet 100 mg PO .HS PRN (Reason: insomnia) Qty: 60 1RF Discharge Orders: Discharge ED (Routine); Ordered 06/06/23 Ordered By: Ashley Saenz Patient Instructions: Hand Sprain (ED), RICE Therapy Activity Restrictions/Additional Instructions: Neither myself or the radiologist visualized any acute fractures or abnormalities on your x-rays. As discussed we will place you in a Velcro wrist splint. You may take [id number] Tylenol and ibuprofen as needed for discomfort. You may ice and elevate the extremity. We will have case management set you up with a primary care provider for further follow-up if symptoms do not seem to be improving. Coding Level of Care Code ED Adult Care Provider for Brunilda Bran
--- NOTE | 2023-06-07 09:32 | DCPLANNER ---
data center manager had message to speak with patient about getting established with a primary care physician. data center manager called phone number [phone] - unable to speak with patient at this time, a voicemail was left for patient to return skilled nursing case manager phone call.
== END 2023-06-06 17:18 | disposition home or self-care (01) ==
PROVIDERS: Emergency Provider Physician Assistant
DX: S63.92XA Sprain of unspecified part of left wrist and hand, initial encounter (principal); S66.912A Strain of unspecified muscle, fascia and tendon at wrist and hand level, left hand, initial encounter; Z86.19 Personal history of other infectious and parasitic diseases; F17.210 Nicotine dependence, cigarettes, uncomplicated; W11.XXXA Fall on and from ladder, initial encounter
CPT/HCPCS: 73110; 73130; 99283

== ENCOUNTER → 2023-06-08 08:31 | Outpatient (BNVA) | payer BC, MEDICAID, SELFPAY | PROVIDERS: Visit Provider Nurse Practitioner Family | DX: M79.642 Pain in left hand (principal) | CPT/HCPCS: 73110 ==

== ENCOUNTER 2023-07-15 10:31 | Emergency (ER) | payer MEDICAID, SELFPAY ==
[2023-07-15 10:37] VITALS: BP 163/97; PULSE 91; RESP 18; TEMP 36.4; O2SAT 100; BMI 25.8
[2023-07-15 10:39] VITALS: BP 163/97; PULSE 91; RESP 18; O2SAT 100
--- NOTE | 2023-07-15 11:04 | ED_ITS ---
HPI - Dental/Oral General: Chief complaint: Dental/Oral Stated complaint: sore throat, dental issues Time Seen by Provider: 07/15/23 10:31 History of Present Illness: Nanci littlejohn is a 32-year-old female that presents to the emergency department with complaints of oral and throat pain. Patient states that she had 3 teeth pulled and has developed erythema and pain in the right jawline. She has been evaluated by her dentist recently started on amoxicillin. Patient also reports recent development of sore throat. Pharyngeal retropharyngeal area reddened with pustules. Denies fever chills Associated symptoms: Reports odynophagia; Denies ear or mastoid pain or fever(s) Review of Systems General: Reports: 10 or more systems reviewed and unremarkable except in HPI and below Const: Denies: fever(s), chills, fatigue or malaise Eyes: Denies: change in vision, eye discharge or eye redness ENMT: Reports: throat pain, odynophagia, nasal discharge, nasal congestion and post nasal drip; Denies: hoarseness, ear or mastoid pain, ear discharge, change in hearing, tinnitus or sinus pain Card: Denies: chest pain, palpitations, irregular heart rhythm, edema, dyspnea on exertion, orthopnea or leg pain with exertion Resp: Reports: productive cough and change in phlegm color (White); Denies: dyspnea, non-productive cough, wheezing, stridor or chest congestion GI: Denies: abdominal pain, nausea, vomiting, diarrhea or constipation : Denies: flank pain, difficulty voiding or dysuria Musc: Denies: neck pain or back pain Skin/Breast: Denies: rash Neuro: Denies: headache(s) or dizziness Endo: Denies: polyuria, polydipsia or tired all the time Gunner/Lymph: Denies: easy bruising or easy bleeding PFS ED PFSH: Medical History Bipolar II disorder Hepatitis C Post-traumatic stress disorder, chronic Psychiatric care Surgical History H/O tubal ligation Family History Grandmother Hypertension Diabetes Mother Hypertension Sister Diabetes Denies family history of Dementia Social History Smoking and tobacco/nicotine status: current every day tobacco/nicotine user cigarettes Packs smoked per day: 0.5 Years cigarettes smoked: 1 Alcohol intake: never Substance/Drug Use: never Current gender identity: Female Special lyubov needs: No Physical Exam Const: COMMON NORMALS: no acute distress, patient oriented x3 and alert GENERAL APPEARANCE: cooperative ORIENTATION/CONSCIOUSNESS: Yes awake HENMT: COMMON NORMALS: normocephalic and atraumatic HEAD & SCALP: normocephalic and atraumatic FACE & SINUS: normal facial exam MOUTH: Normal oral and palatal mucosa present THROAT: posterior oropharynx normal Eye: COMMON NORMALS: Equal, round and reactive pupils present, EOMs intact bilaterally and no scleral icterus GENERAL EYE: appearance normal, both eyes and all related structures PUPIL: Yes Equal, round and reactive pupils present Neck/C-Spine: COMMON NORMALS: full ROM GENERAL: Yes normal visual inspection Lymph: LYMPHATIC: no lymphadenopathy noted Chest: COMMONS NORMALS: normal inspection of the chest Breast/axilla inspection: Yes no chest deformity, asymmetry, normal contours, no nodules, masses, tenderness Resp: COMMON NORMALS: normal respiratory effort, No retractions, No use of accessory muscles and clear to auscultation bilaterally EFFORT & INSPECTION: Yes able to speak in complete sentences and Yes symmetric chest movement AUSCULTATION: clear to auscultation bilaterally Cardio: COMMON NORMALS: regular rate, regular rhythm and Peripheral pulses 2+ throughout RATE: regular rate RHYTHM: regular rhythm PERIPHERAL PULSES: Peripheral pulses 2+ throughout GI: COMMON NORMALS: Normal to inspection, nondistended, normoactive bowel sounds present, Soft to palpation, non-tender and No hepatosplenomegaly present INSPECTION: Yes normal to inspection AUSCULTATION: Yes normoactive bowel sounds PALPATION: Yes Soft to palpation and Yes No hepatosplenomegaly present RECTAL EXAM: deferred Extremity: COMMON NORMALS: normal to inspection GENERAL: Yes normal exam except as noted Neuro: COMMON NORMALS: patient oriented x3 SENSORIUM/ORIENTATION: Yes alert CRANIAL NERVES: Yes CN normal except as noted Psych: COMMON NORMALS: mental status grossly normal, Normal thought process present, cooperative, activity/motor behavior normal, denies homicidal ideation and denies suicidal ideation THOUGHT PROCESS: Normal thought process present Skin: COMMON NORMALS: no rashes or lesions noted, no wounds and turgor normal GENERAL SKIN EXAM: no rashes or lesions noted and turgor normal Course Vital Signs: Vital signs: Vital Signs Temperature 97.6 F 07/15/23 10:37 Pulse Rate 91 07/15/23 10:39 Respiratory Rate 18 07/15/23 10:39 Blood Pressure 163/97 07/15/23 10:39 Pulse Oximetry 100 07/15/23 10:39 Oxygen Delivery Me thod Room Air 07/15/23 10:39 MDM - Dental/Oral Medical Decision Making Patient was evaluated in the emergency department for sore throat, cough, nasal drainage along with dental pain. Patient has symptoms of URI with nasal drainage that is clear to green, productive cough with white sputum, and dental pain following 3 extractions at the beginning of the week Patient was treated here in the emergency department with penicillin and Toradol. She is can go home on penicillin VK twice daily for 10 days No radiology studies performed this visit Discharge Plan Discharge Patient Disposition: Home Clinical Impression: Pharyngitis, Toothache, Dental caries, Fracture of tooth, URI (upper respiratory infection) Condition: Stable Prescriptions: New penicillin V potassium 500 mg tablet 500 mg PO BID 10 Days Qty: 20 0RF cetirizine 10 mg capsule 10 mg PO DAILY PRN (Reason: allergy symptoms) Qty: 30 0RF fluticasone propionate 50 mcg/actuation spray,suspension 1 spray intranasal BID PRN (Reason: nasal congestion) Qty: 16 0RF Rx Instructions: administer into each nostril No Action amoxicillin 875 mg tablet 875 mg PO BID 7 Days Qty: 14 0RF ibuprofen 800 mg tablet 800 mg PO Q8H PRN (Reason: pain) Qty: 14 0RF trazodone 50 mg tablet 100 mg PO .HS PRN (Reason: insomnia) Qty: 60 1RF Discharge Orders: Discharge ED (Routine); Ordered 07/15/23 Ordered By: Tej Bryant Discharge Diet: Advance as tolerated Discharge Activity: Resume usual activity Patient Instructions: Pharyngitis (ED), Acute Bronchitis (ED), Toothache (ED), Pain Management Activity Restrictions/Additional Instructions: Please return to the emergency department for new, concerning, worsening symptom Coding Level of Care Code ED Option Trader for Brunilda Bran
[2023-07-15] MEDS: ketorolac 60 mg/2 mL INJ IM (11:12)
[2023-07-15] MEDS: penicillin v potassium 250 mg Tablet 500 MG PO (11:13)
[2023-07-15 11:18] VITALS: PULSE 78; RESP 18
== END 2023-07-15 11:19 | disposition home or self-care (01) ==
PROVIDERS: Emergency Provider Nurse Practitioner
DX: J02.9 Acute pharyngitis, unspecified (principal); K02.9 Dental caries, unspecified; J06.9 Acute upper respiratory infection, unspecified; S02.5XXA Fracture of tooth (traumatic), initial encounter for closed fracture; Z86.19 Personal history of other infectious and parasitic diseases; F17.210 Nicotine dependence, cigarettes, uncomplicated; X58.XXXA Exposure to other specified factors, initial encounter
CPT/HCPCS: 96372; 99284; J1885

== ENCOUNTER → 2023-12-12 17:56 | Outpatient (BNVA) | payer MEDICAID, SELFPAY | PROVIDERS: Visit Provider Nurse Practitioner | DX: J06.9 Acute upper respiratory infection, unspecified (principal) | CPT/HCPCS: 87400 ==